=== PATIENT | female | born 1960 | race Caucasian/White ===

== ENCOUNTER → 2019-10-27 14:51 | Outpatient (CLI) | payer BC, SELFPAY ==
--- NOTE | 2019-10-27 14:58 | XR_ITS ---
PROCEDURE: XR FOOT WT BEARING LT 3V CLINICAL INDICATION: pain COMPARISON: FTR3 FOOT-RT-3 VIEWS from 03/04/2014 XR ANKLE WT BEARING LT MIN 3V from 10/27/2019 XR FOOT WT BEARING RT 3V from 10/27/2019 FINDINGS: No fracture or dislocation. No lytic or blastic change. There is normal mineralization. The joint spaces are well-preserved. No significant degenerative/arthritic changes. No erosive changes evident. No acute finding of the ankle Other findings:There is some mild nonspecific cortical thickening of the shaft of the 3rd metatarsal. This is nonspecific but could be seen with stress fracture. IMPRESSION: Nonspecific cortical thickening 3rd metatarsal shaft which could be seen with stress fracture. Dictated by: Gordon Howard MD 10/27/2019 15:35 Electronically signed by Gordon Howard MD in [place] 10/27/2019 15:35
--- NOTE | 2019-10-27 14:58 | XR_ITS ---
PROCEDURE: XR ANKLE WT BEARING RT MIN 3V CLINICAL INDICATION: pain COMPARISON: XR FOOT WT BEARING RT 3V from 10/27/2019 FINDINGS: No fracture or dislocation. No lytic or blastic change. There is normal mineralization. The joint spaces are well-preserved. No significant degenerative/arthritic changes. No erosive changes evident. Other findings:None. IMPRESSION: Negative right foot and ankle Dictated by: Gordon Howard MD 10/27/2019 15:37 Electronically signed by Gordon Howard MD in [place] 10/27/2019 15:37
== END ==
PROVIDERS: PCP Nurse Practitioner Family; Visit Provider Podiatrist
DX: M79.672 Pain in left foot (principal); M79.671 Pain in right foot
CPT/HCPCS: 73610; 73630

== ENCOUNTER 2020-06-27 14:01 | Emergency (ER) | payer BC, SELFPAY ==
[2020-06-27 14:02] VITALS: BP 165/61; PULSE 99; RESP 17; TEMP 37.9; O2SAT 95; BMI 34.0
--- NOTE | 2020-06-27 14:16 | ECG_ITS ---
APPROVED REPORT Exam: Resting ECG HR:101 bpm ECG Measurements Heart Rate 101 AXES RI 112 P 49 QRSd 86 QRS -4 QT 350 T 83 QTc 453 Conclusion Sinus tachycardia Isolated Q in III Abnormal ECG Electronically signed by : Erickson Patrick, 06/28/2020 17:20:26
--- NOTE | 2020-06-27 14:20 | XR_ITS ---
PROCEDURE: XR CHEST PORTABLE CLINICAL HISTORY: chest pain COMPARISON: No exams were available for comparison FINDINGS: The cardiomediastinal silhouette and pulmonary vascularity are within normal limits. The lungs are clear without infiltrates, suspicious nodules, or pleural effusions. No acute bony abnormalities. IMPRESSION: No acute findings. Dictated by: Gordon Howard MD 06/27/2020 15:23 Gordon Howard MD in [place] 06/27/2020 15:23
[2020-06-27 14:43] LABS: Basophils % 0.6 % (0.1-2.0); Eosinophils % 0.7 % (0.1-12.0); Hematocrit 42.9 % (37.0-47.0); Hemoglobin 14.2 g/dL (12.2-16.2); Lymphocytes # 1.9 K/mm3 (0.7-4.5); Lymphocytes % 36.4 % (10-50); Mean Corpuscular HGB Conc 33.1 g/dL (31.8-35.4); Mean Corpuscular Hemoglobin 28.9 pg (27.0-31.2); Mean Corpuscular Volume 87.4 fl (81-99); Monocytes # 0.3 K/mm3 (0.1-1.0); Monocytes % 4.9 % (1.7-9.3); Neutrophils % 57.4 % (37.0-80.0); Platelet Count 286 K/mm3 (142-424); Red Blood Count 4.91 M/mm3 (4.20-5.40); Red Cell Distribution Width 13.3 % (11.5-17.5); White Blood Count 5.2 K/mm3 (4.8-10.8)
[2020-06-27 14:46] LABS: Chloride 105 mmol/L (98-107); Potassium 4.2 mmoL/L (3.5-5.1); Sodium 138 mmol/L (136-145)
[2020-06-27 14:49] LABS: Alanine Aminotransferase 26 U/L (12-78); Albumin Level 4.3 g/dl (3.5-5.0); Albumin/Globulin Ratio 1.4 (1.1-1.8); Alkaline Phosphatase 95 U/L (38-126); Anion Gap 12.2 mEq/L (5-15); Aspartate Amino Transferase 34 U/L (14-36); Bilirubin,Total 0.4 mg/dl (0.2-1.3); Blood Urea Nitrogen 19 mg/dl (7-17); Calcium 9.4 mg/dl (8.4-10.2); Carbon Dioxide 25 mmol/L (22.0-30.0); Creatinine Clearance Estimated 87 mL/min (50-200); Estimated Glomerular Filt Rate 64 ml/min (>60); GFR (African American) 78 ML/MIN (>60); Globulin 3.1 g/dL (1.3-3.2); Glucose 106 mg/dl (74-100); Total Protein,Serum 7.4 g/dl (6.3-8.2)
[2020-06-27 15:08] VITALS: BP 141/88; PULSE 87; RESP 18; TEMP 36.6; O2SAT 99
[2020-06-27 15:25] LABS: Troponin I < 0.01 ng/ml (0.00-0.034)
[2020-06-27 15:30] VITALS: BP 144/79; PULSE 81; RESP 18; O2SAT 99
[2020-06-27 16:00] VITALS: PULSE 75; RESP 17; O2SAT 98
[2020-06-27 16:30] VITALS: PULSE 78; RESP 17; O2SAT 98
--- NOTE | 2020-06-27 16:31 | HMH.EDGENADL ---
ED Disposition Clinical Impression: Viral syndrome Disposition: Home, Self-Care Condition on Discharge: Good Instructions: DI for Neck Pain Referrals: Shelly Payne APRN [Primary Care Provider] - 3 days Time of Disposition: 16:35 - Critical Care Critical Care Time: No Attestation: On 06/27/20, the high probability of a clinically significant, sudden or life threatening deterioration of the following system(s) required my full and direct attention, intervention and personal management. The time I documented below is in addition to time spent performing reported procedures but includes the following listed in this critical care notation. Medical Decision Making - Medical Records Medical records reviewed: Yes: I reviewed the patient's medical records. - Wale Inquiry Pt receiving controlled substance: No Vital Signs: 06/27/20 14:02 06/27/20 15:08 06/27/20 15:30 Temperature 100.3 F H 97.9 F Temperature Source Oral Oral Pulse Rate [Left Radial] 99 H 87 81 Respiratory Rate 17 18 18 Blood Pressure [Left Arm] 165/61 H 141/88 H 144/79 H Blood Pressure Mean [Left Arm] 95 105 100 Blood Pressure Source [Left Arm] Manual Cuff/ Doppler Automatic Cuff Blood Pressure Position [Left Arm] Sitting Sitting 02 Sat by Pulse Oximetry 95 99 99 Oxygen Delivery Method Room Air Room Air 06/27/20 16:00 06/27/20 16:30 Temperature Temperature Source Pulse Rate [Left Radial] 75 78 Respiratory Rate 17 17 Blood Pressure [Left Arm] Blood Pressure Mean [Left Arm] Blood Pressure Source [Left Arm] Blood Pressure Position [Left Arm] 02 Sat by Pulse Oximetry 98 98 Oxygen Delivery Method Room Air Room Air - Lab Data Lab results reviewed: Yes: I reviewed the patient's lab results. Lab Results 06/27/20 14:27: WBC 5.2, RBC 4.91, Hgb 14.2, Hct 42.9, MCV 87.4, MCH 28.9, MCHC 33.1, RDW 13.3, Plt Count 286, MPV 7.0 L, Neut % (Auto) 57.4, Lymph % (Auto) 36.4, Pratt % (Auto) 4.9, Eos % (Auto) 0.7, Baso % (Auto) 0.6, Neut # (Auto) 3.0, Lymph # (Auto) 1.9, Pratt # (Auto) 0.3, Eos # (Auto) 0.0, Baso # (Auto) 0.0 06/27/20 14:27: Sodium 138, Potassium 4.2, Chloride 105, Carbon Dioxide 25, Anion Gap 12.2, BUN 19 H, Creatinine 0.90, Estimated Creat Clear 87, Estimated GFR 64, Est GFR ( Amer) 78, Glucose 106 H, Calcium 9.4, Total Bilirubin 0.4, AST 34, ALT 26, Alkaline Phosphatase 95, Troponin I < 0.01, Total Protein 7.4, Albumin 4.3, Globulin 3.1, Albumin/Globulin Ratio 1.4 Result diagrams: 06/27/20 14:27 06/27/20 14:27 Orders (Tests/Meds): ORDERS Category Date Time Status Covid-19 Nasal PCR ([facility]) Routine Lab 06/27/20 15:10 Received Troponin I Q3H Lab 06/27/20 17:30 Ordered Troponin I Q3H Lab 06/27/20 20:30 Ordered - Radiology Data #1 Image(s): Chest Image Reviewed: Yes I reviewed the patient's radiology results, Yes I have reviewed radiologist's interpretation Preliminary Findings: Normal/NAD - ECG Data Tracing #1 Sinus tachycardia, 101 bpm, no ST elevation or depression appreciated, no ectopy. ECG initial impression date: 06/27/20 ECG initial impression time: 14:17 Medical Decision Narrative: 59yo F initially presenting with concern for cardiac pathology but has since learned a close family were test positive for coronavirus and she developed fever and chills. Symptoms appear more consistent with coronavirus. Patient is already been swabbed for coronavirus. Her cardiac work-up is unremarkable. Already discussed monoclonal antibody treatment with the patient. Her swab is not returned at this time but the patient states if positive, she would be interested in completing the treatment. She will be called further once results are available. General Adult HPI - General Chief complaint: Neck Pain/Injury Stated complaint: nausea, neck hurts bad taste Time Seen by Provider: 06/27/20 16:31 Mode of Arrival: Family Vehicle Limitations: No Limitations Description of Symptoms (Recalled fro
[2020-06-27 16:39] VITALS: BP 137/79; PULSE 76; RESP 18; TEMP 36.6; O2SAT 98
--- NOTE | 2020-06-27 22:46 | PC.NURSE ---
called and left voicemail
== END 2020-06-27 16:41 | disposition home or self-care (01) ==
PROVIDERS: Emergency Provider Family Medicine; PCP Nurse Practitioner Family
DX: U07.1 COVID-19 (principal); B34.9 Viral infection, unspecified; I10 Essential (primary) hypertension; E78.5 Hyperlipidemia, unspecified
CPT/HCPCS: 71045; 80053; 84484; 85025; 93005; 99283; U0003

== ENCOUNTER 2020-06-28 08:59 | Outpatient (CLI) | payer BC, SELFPAY ==
[2020-06-28] VITALS (7 sets, daily range): BP systolic 103–123; BP diastolic 65–82; PULSE 81–89; RESP 18–20; TEMP 36.7–37.2; O2SAT 93–96
== END 2020-06-28 11:55 | disposition home or self-care (01) ==
PROVIDERS: PCP Nurse Practitioner Family; Visit Provider Family Medicine
DX: U07.1 COVID-19 (principal)
CPT/HCPCS: 96365

== ENCOUNTER → 2021-06-12 08:18 | Outpatient (CLI) | payer OTHER, SELFPAY ==
[2021-06-12 10:43] LABS: Alanine Aminotransferase 37 U/L (12-78); Albumin Level 4.5 g/dl (3.5-5.0); Albumin/Globulin Ratio 1.9 (1.1-1.8); Alkaline Phosphatase 116 U/L (38-126); Anion Gap 13.9 mEq/L (5-15); Aspartate Amino Transferase 32 U/L (14-36); Bilirubin,Total 0.5 mg/dl (0.2-1.3); Blood Urea Nitrogen 15 mg/dl (7-17); Calcium 9.4 mg/dl (8.4-10.2); Carbon Dioxide 26 mmol/L (22.0-30.0); Chloride 106 mmol/L (98-107); Chol/HDL Ratio 3.5 (1-3.5); Cholesterol 176 mg/dl (140-200); Estimated Glomerular Filt Rate 73 ml/min (>60); GFR (African American) 89 ML/MIN (>60); Globulin 2.4 g/dL (1.3-3.2); Glucose 104 mg/dl (74-100); HDL Cholesterol 50 mg/dl (40-60); Potassium 4.9 mmoL/L (3.5-5.1); Sodium 141 mmol/L (136-145); Total Protein,Serum 6.9 g/dl (6.3-8.2); Triglycerides 170 mg/dl (30-150); VLDL Cholesterol 34 mg/dL (0-40)
[2021-06-12 10:54] LABS: Direct LDL Cholesterol 93.16 mg/dL (100-129)
[2021-06-12 11:00] LABS: 25-OH Vitamin D, Total 19.7 ng/mL (30-100)
== END ==
PROVIDERS: PCP Nurse Practitioner Family; Visit Provider Nurse Practitioner Family
DX: Z00.00 Encounter for general adult medical examination without abnormal findings (principal); I10 Essential (primary) hypertension; E78.5 Hyperlipidemia, unspecified; E55.9 Vitamin D deficiency, unspecified; Z11.1 Encounter for screening for respiratory tuberculosis
CPT/HCPCS: 36415; 80053; 80061; 82306

== ENCOUNTER 2022-03-24 12:38 | Emergency (ER) | payer OTHER, SELFPAY ==
[2022-03-24] VITALS (9 sets, daily range): BP systolic 111–167; BP diastolic 62–91; PULSE 73–90; RESP 18–20; TEMP 36.7; O2SAT 95–98; BMI 34.3
--- NOTE | 2022-03-24 12:48 | ECG_ITS ---
APPROVED REPORT Exam: Resting ECG HR:83 bpm ECG Measurements Heart Rate 83 AXES OK 131 P 59 QRSd 100 QRS 24 QT 385 T 78 QTc 425 Conclusion SINUS RHYTHM Late R wave progression Q waves in Inferior leads are of questionable significance ABNORMAL ECG UNCONFIRMED REPORT Electronically signed by : Erickson Patrick MD 03/25/2022 14:58:21
--- NOTE | 2022-03-24 12:56 | HMH.EDGENADL ---
Discharge Plan Disposition Patient Disposition: Home, Self-Care Condition: Good Prescriptions Prescriptions: No Action diclofenac sodium 75 mg tablet,delayed release (DR/EC) 75 mg PO BID Qty: 60 3RF bisoprolol-hydrochlorothiazide 5-6.25 mg tablet 5 tab PO DAILY atorvastatin 40 mg tablet 40 mg PO DAILY Label Comments: TAKE ONE TABLET BY MOUTH EVERY DAY Referrals Follow up/Referrals: Shelly Payne APRN [Primary Care Provider] - See instructions Boy Mota MD [Staff Physician] - See instructions Activity Restrictions/Add. Instructions Additional Instructions/Restrictions: Follow-up with primary care provider or cardiology, Dr. Mota. Call Saturday to make appointment. Return to the emergency department if worsening episodes of jaw pain or if chest pain or shortness of breath or other symptoms of concern. Clinical Impressions Clinical Impression: Jaw pain Discharge ED Provider: Raffy Orozco General Adult HPI General Chief complaint: PAIN Stated complaint: left side jaw pain Time Seen by Provider: 03/24/22 15:12 History of Present Illness HPI narrative: Patient states that she awakened last night at 2 AM with pain in her left jaw, she indicates the TMJ area. She did not notice that the pain increased at all with movement of the jaw or clenching of the jaw or with touch. She says it was able to settle down and she was able to get back to sleep at 3 AM. Today her jaw just feels a little bit sore. Chest felt a little heavy earlier today, but not now. States she was hot when she woke up at 2 AM, but not sweaty. No shortness of breath. No problems with her ears for her teeth. She says that her family members wanted her to come in and be checked. She does not have any known heart problems. She does have hypertension and hyperlipidemia. She has a family history of heart disease in her father. She says he started having heart problems at about the age of 62 or 63. She has never had a stress test or heart cath. Related Data Home Medications Medication Instructions Recorded Confirmed atorvastatin 40 mg tablet 40 mg PO DAILY Cholesterol 10/29/19 06/27/20 bisoprolol 5 5 tab PO DAILY blood pressure 10/29/19 06/27/20 mg-hydrochlorothiazide 6.25 mg tablet Previous Rx's Medication Instructions Recorded diclofenac sodium 75 mg 75 mg PO BID pain #60 tabs 01/28/20 tablet,delayed release Allergies Allergy/AdvReac Type Severity Reaction Status Date / Time nickel [NICKEL] Allergy Unknown I-RASH Verified 03/29/20 15:25 PFSH [facility] Social History Smoking Status: Never smoker alcohol intake: never current occupational status: employed Travel in the last 8 weeks: None ROS Obtained: Yes Systems reviewed as appropriate & no additional complaints except as documented Constitutional Constitutional: Denies fever(s), Denies headache(s) and Denies weakness ENT Ears, Nose, Mouth, and Throat: Denies headache(s), Denies nasal discharge, Denies sore throat and Reports other (Left jaw pain and TMJ area) Cardiovascular Cardiovascular: Reports as per HPI, Denies diaphoresis and Denies palpitations Respiratory Respiratory: Denies shortness of breath and Denies cough Gastrointestinal Gastrointestingal: Denies abdominal pain, constipation, diarrhea or vomiting Genitourinary Female Genitourinary: Denies difficulty voiding, Denies dysuria and Denies flank pain Musculoskeletal Musculoskeletal: Denies numbness Neurologic Neurologic: Denies headache(s), Denies numbness and Denies weakness Endocrine Endocrine: Denies palpitations Physical Exam General General appearance: alert and in no apparent distress Head Head exam: atraumatic and normocephalic Eye Eye exam: Present normal appearance and EOMI ENT ENT exam: Present mucous membranes moist, TM's normal bilaterally and other (Dentition unremarkable. TMJs nontender. Full range of motion of mandible without pain.)
--- NOTE | 2022-03-24 12:57 | XR_ITS ---
PROCEDURE INFORMATION: Exam: XR Chest Exam date and time: 03/24/2022 1:22 PM Age: 61 years old Clinical indication: Pain; Chest pressure; Additional info: Chest heaviness TECHNIQUE: Imaging protocol: Radiologic exam of the chest. Views: 1 view. COMPARISON: CR XR CHEST PORTABLE 06/27/2020 3:05 PM FINDINGS: Lungs: Unremarkable. No consolidation. Pleural spaces: Unremarkable. No pleural effusion. No pneumothorax. Heart/Mediastinum: Unremarkable. No cardiomegaly. Bones/joints: Unremarkable. IMPRESSION: No acute findings.
[2022-03-24 13:21] LABS: Basophils # 0.1 K/mm3 (0-0.2); Basophils % 0.7 % (0.1-2.0); Eosinophils # 0.4 K/mm3 (0.0-0.4); Hematocrit 42.9 % (37.0-47.0); Hemoglobin 13.6 g/dL (12.2-16.2); Lymphocytes # 2.4 K/mm3 (0.7-4.5); Lymphocytes % 26.1 % (10-50); Mean Corpuscular HGB Conc 31.6 g/dL (31.8-35.4); Mean Corpuscular Hemoglobin 28.7 pg (27.0-31.2); Mean Corpuscular Volume 90.7 fl (81-99); Mean Platelet Volume 6.7 fl (7.4-10.4); Monocytes # 0.3 K/mm3 (0.1-1.0); Monocytes % 3.1 % (1.7-9.3); Neutrophils # 6.1 K/mm3 (1.8-7.8); Platelet Count 394 K/mm3 (142-424); Red Blood Count 4.73 M/mm3 (4.20-5.40); White Blood Count 9.2 K/mm3 (4.8-10.8)
[2022-03-24 13:31] LABS: Chloride 106 mmol/L (98-107); Potassium 4.1 mmoL/L (3.5-5.1); Sodium 140 mmol/L (136-145)
[2022-03-24 13:34] LABS: Anion Gap 12.1 mEq/L (5-15); Blood Urea Nitrogen 22 mg/dl (7-17); Calcium 9.2 mg/dl (8.4-10.2); Carbon Dioxide 26 mmol/L (22.0-30.0); Creatinine Clearance Estimated 77 mL/min (50-200); Estimated Glomerular Filt Rate 50 ml/min (>60); GFR (African American) 61 ML/MIN (>60); Glucose 97 mg/dl (74-100)
[2022-03-24 14:00] LABS: Troponin I < 0.01 ng/ml (0.00-0.034)
--- NOTE | 2022-03-24 15:31 | PC.NURSE ---
second troponin sent to lab
[2022-03-24 16:19] LABS: Troponin I < 0.01 ng/ml (0.00-0.034)
== END 2022-03-24 16:50 | disposition home or self-care (01) ==
PROVIDERS: Emergency Provider Emergency Medicine; PCP Nurse Practitioner Family
DX: R68.84 Jaw pain (principal)
CPT/HCPCS: 71045; 80048; 84484; 85025; 93005; 99283

== ENCOUNTER 2023-08-21 09:45 | Day surgery (SDC) | payer OTHER, SELFPAY ==
[2023-08-19 13:26] VITALS: BMI 35.1
[2023-08-21 10:26] VITALS: BP 168/69; PULSE 71; RESP 18; TEMP 36.1; O2SAT 97
[2023-08-21] MEDS: LACTATED RINGERS 1000ML 1,000 ML 100 ML IV ×2 (10:41→10:42)
[2023-08-21 10:47] VITALS: O2SAT 97
--- NOTE | 2023-08-21 11:11 | HMH.SCOPE ---
Procedure: Date: 08/21/23 Patient Date of :: 1960 Procedure Performed:: Colonoscopy Indications:: The patient is a 63-year-old who presents for screening colonoscopy. Performing Provider:: Ren Boykin MD Referring Provider:: Shelly Hernandez APRN Sedation:: See RN records Procedure:: After placing the patient in the left lateral decubitus position, the colonoscopy was gently inserted into the rectum and under direct visualization advanced to the cecum which was identified by transillumination in the right lower quadrant, identification of the ileocecal valve, appendiceal orifice, and cecal strap. Color, texture, mucosa, and anatomy of the colon were carefully examined with the scope. Findings:: The quality of the bowel preparation was excellent. The sigmoid colon was somewhat tortuous. There was a small sessile 4 mm polyp in the sigmoid colon. Polyp was removed by cold snare polypectomy. Polyp was retrieved. Scattered diverticulosis in the sigmoid colon. The remaining colon appeared normal. Small internal hemorrhoids were seen on retroflexion view of the rectum Impression: Polyp of the sigmoid colon Diverticulosis Recommendations:: Await pathology results Repeat colonoscopy in 5 years Complications:: None Estimated blood obtained (mL): 0 Colonoscopy Component Colonoscopy Component Was a colonoscopy performed during today's procedure?: Yes Recommended follow up colonoscopy of at least 10 years?: Yes
[2023-08-21 11:12] VITALS: BP 105/41; PULSE 92; RESP 14; TEMP 36.2; O2SAT 92
[2023-08-21 11:22] VITALS: BP 93/41; PULSE 80; RESP 16; O2SAT 97
[2023-08-21 11:32] VITALS: BP 100/53; PULSE 79; RESP 16; O2SAT 96
[2023-08-21 11:42] VITALS: BP 104/56; PULSE 82; RESP 18; O2SAT 96
--- NOTE | 2023-08-21 12:14 | EXP.ANES.CKL ---
[facility] Disclaimer: The information contained in this section may have been updated after the patient was seen, as this information can be updated by other users. Medical History Urinary tract infection History of COVID-19 Irritable bowel syndrome (IBS) Hyperlipidemia Hypertension Surgical History H/O repair of rotator cuff H/O tubal ligation Family History Other History of open heart surgery Hypertension Social History Smoking Status: Never smoker alcohol intake: never substance use type: denies use current occupational status: retired Travel in the last 8 weeks: None caffeine: Yes [facility] Anesthesia Checklist Patient Identification Patient Identification: Verbal (Name & ) Structural Data Admitted From: Home Planned Operative Procedure/s: colonoscopy Consent for Planned Operative Procedure(s) Verified: Yes Airway Assessment Mallampati Score:: Class II C-Spine Mobility Assessed: Yes TMJ Mobility Assessed: Yes Dentition: Good Dentition Neurological Assessment Level of Consciousness: Awake, Alert and Appropriate Anesthesia Plan Anesthesia Risk discussed: Yes Anesthesia Plan: Verified ASA Class: II Anesthesia Type: MAC
== END 2023-08-21 11:47 | disposition home or self-care (01) ==
PROVIDERS: PCP Nurse Practitioner Family; Visit Provider Internal Medicine
PROC: (CPT 45385; principal; 2023-08-21 11:00)
DX: Z12.11 Encounter for screening for malignant neoplasm of colon (principal); K57.30 Diverticulosis of large intestine without perforation or abscess without bleeding; K64.8 Other hemorrhoids; D12.5 Benign neoplasm of sigmoid colon
CPT/HCPCS: 45385; 96372; J2704

== ENCOUNTER 2023-12-07 10:09 | Outpatient (CLI) | payer OTHER, SELFPAY ==
[2023-12-07 10:33] LABS: Albumin Level 4.1 g/dl (3.5-5.0); Chloride 111 mmol/L (98-107); Potassium 5.1 mmoL/L (3.5-5.1); Sodium 142 mmol/L (136-145)
[2023-12-07 10:36] LABS: Alanine Aminotransferase 27 U/L (12-78); Albumin/Globulin Ratio 1.5 (1.1-1.8); Alkaline Phosphatase 106 U/L (38-126); Anion Gap 8.1 mEq/L (5-15); Aspartate Amino Transferase 27 U/L (14-36); Bilirubin,Total 0.5 mg/dl (0.2-1.3); Blood Urea Nitrogen 17 mg/dl (7-17); Carbon Dioxide 28 mmol/L (22.0-30.0); Estimated Glomerular Filt Rate 45 ml/min (>60); GFR (African American) 55 ML/MIN (>60); Globulin 2.7 g/dL (1.3-3.2); Total Protein,Serum 6.8 g/dl (6.3-8.2)
[2023-12-07 10:37] LABS: Calcium 8.9 mg/dl (8.4-10.2); Glucose 88 mg/dl (74-100)
[2023-12-07 10:56] LABS: Troponin I < 0.01 ng/ml (0.00-0.034)
[2023-12-07 11:07] LABS: Thyroid Stimulating Hormone 3.14 uIU/mL (0.465-4.68)
== END 2023-12-07 23:59 | disposition home or self-care (01) ==
LOC: LAB 10:10
PROVIDERS: PCP Nurse Practitioner Family; Visit Provider Nurse Practitioner Family
DX: M79.602 Pain in left arm (principal); R07.89 Other chest pain; R06.02 Shortness of breath
CPT/HCPCS: 36415; 80053; 84443; 84484

== ENCOUNTER 2024-01-14 11:53 | Outpatient (CLI) | payer OTHER, SELFPAY ==
--- NOTE | 2024-01-14 11:58 | CT_ITS ---
APPROVED REPORT Can Striper: CLINICAL INDICATION Chest Pain TECHNIQUE Image Acquisition: A 128 slice MDCT scanner ([employer] View) was used for data acquisition. A noncontrast coronary calcium scan was performed. A CT attenuation threshold of 130 Hounsfield units (HU) was used for the detection of calcium in contiguous voxels of 1 sq mm in area to be counted as individual lesions. Bolus tracking in the ascending aorta with a threshold of 180 HU was performed. Immediately afterwards, ECG synchronized cardiac CT was then performed from the cardiac base to apex using retrospective gating with ECG tube current modulation. A total of 85 mL of Isovue 370 mg/mL contrast medium was administered at 5 mL/sec followed by a saline flush using a biphasic injection protocol. A tube voltage of 120 KVp was used. The patient received the following medications prior to the cardiac CT. 25 mg of oral metoprolol 15 mg of oral ivabradine 0.8 mg of sublingual nitroglycerin The average heart rate at the time of acquisition was 54 bpm and regular. Image Reconstruction Transaxial images were reconstructed at 0.67 mm slide thickness. Data was reviewed interactively on an advanced workstation capable of 2 and 3-dimensional displays in all conventional reconstruction formats, including multiplanar reformations, maximum intensity projections, curved multiplanar reformations, and volume rendered reconstructions. When applicable, selected routine images describing the relevant coronary anatomy and pathology were saved and sent to PACS. Complications None Technical Quality Overall image quality was fair. Coronary artery opacification was adequate. Total DLP (Dose-Length Product) is 1248.8 mGy-cm. The reported value represents the total of one or more individual components during the CT acquisition of this date and at this time, and as such, the same value may appear in more than one CT report depending on the interpreting/reporting physicians. COMPARISON None FINDINGS CT Coronary Calcium Scoring LMA (Left Main Artery) = 0 LAD (Left Anterior Descending) = 65 LCX (Left Coronary Circumflex) = 12 RCA (Right Coronary Artery) = 22 Total Calcium Score = 109 using the AJ-130 method. The observed calcium score of 109 is at 85th percentile for subjects of the same age, sex, and race/ethnicity. The interpretation of the calcium heart score is based on the following continuum*: 0 = no calcified plaque detected (risk of coronary artery disease is very low ??? less than 5%) 1-10 = calcium detected in extremely minimal levels (risk of coronary diseases is still low ??? less than 10%) 11-100 = mild levels of plaque detected with certainty (mild or minimal narrowing of heart arteries is likely) 101-400 = definite,at least moderate levels of plaque detected (relatively high risk of a heart attack within 3-5 years) >401-999 = extensive levels of plaque detected (high risk of heart attack, high levels of vascular disease are present, high likelihood of at least one significant coronary narrowing) *The calcium heart score quantifies the burden of coronary calcification/plaque in the coronary arteries. The calcium heart score is not able to evaluate the presence or burden of non-calcified (i.e. soft) plaque. There is also identifiable mild calcification in the aortic valve. Coronary CT Angiography The coronary arterial system is right dominant. Quantitative Stenosis Grading: Left Main (LM): The left main originates normally from the left sinus of Valsalva. The LM bifurcates into the left anterior descending artery and left circumflex artery. There is calcified plaque noted in the distal LM segment, with < 25% luminal stenosis. Left Anterior Descending (LAD) and Diagonal Branches: The LAD gives off 3 diagonal branch(es). There is mixed calcified/noncalcified plaque in the proximal LAD segment, involving the first diagonal branch, with up to 50-75% luminal stenosis. There is no evidence of LAD-myocardial bridge. Left Circumflex (LCX) and Obtuse Marginals (OM): The LCX gives off 1 Obtuse Marginal (OM) branch(es). There is mixed calcified/noncalcified plaque in the proximal LCx, with up to 25-49% luminal stenosis. Right Coronary Artery (RCA): The RCA originates normally from the right sinus of Valsalva. The RCA gives off a posterior descending artery (PDA) and posterolateral (PL) branches. There is mixed calcified/noncalcified plaque in the proximal RCA segment, with up to 25-49% luminal stenosis. Non-Coronary Cardiac Findings: Analysis of the left ventricular (LV) structure and function was performed after 3-D reconstruction of the LV from axial images, with user-corrected automatic contouring for assessment of LV volumes and user-defined reconstruction from oblique planes for measurement of 3-D cardiac structure and function. -The left ventricle systolic function is normal -There is no left atrial appendage filling defect. Two right pulmonary veins and two left pulmonary veins drain normally into the left atrium. -No pericardial thickening or calcification. -Central and branch pulmonary arteries in the [id number] are unremarkable. -Thoracic aorta within the visualized thoracic aortic-branches in the [id number] is unremarkable. Extracardiac Structures No significant extra-cardiac findings. Note, however, that this study is focused on the cardiac findings. IMPRESSION -Technically difficult study due to suboptimal spatial resolution and blurring artifact. -Presence of coronary calcification with an Agatston score = 109 using the AJ-130 method. -The observed calcium score of 109 is at 85th percentile for subjects of the same age, sex, and race/ethnicity. -Moderate atheroslerosis in the proximal LAD segment and involving the first diagonal branch, with possible evidence of significant flow-limiting atherosclerosis in the corresponding segment. -Mild, nonobstructive atherosclerosis in the proximal LCx and RCA segments. -CAD-RADS 3. Management recommendations per ACC/AHA guidelines*, as clinically appropriate. -Mild calcification in the aortic valve. *Recommendations: CAD RADS 0: Reassurance. Consider non-atherosclerotic causes of chest pain. CAD RADS 1: Consider non-atherosclerotic causes of chest pain. Consider preventive therapy and risk factor modification. CAD RADS 2: Consider non-atherosclerotic causes of chest pain. Consider preventive therapy and risk factor modification, particularly for patients with nonobstructive plaque in multiple segments. CAD RADS 3: Consider further functional testing. Consider symptom-guided anti-ischemic and preventive pharmacotherapy as well as risk factor modification per published guideline statements. CAD RADS 4A: Consider further functional testing or invasive coronary angiography with revascularization per published guideline statements. Consider symptom-guided anti-ischemic and preventive pharmacotherapy as well as risk factor modification per published guideline statements. CAD RADS 4B: Invasive coronary angiography recommended with revascularization per published guideline statements. Consider symptom-guided anti-ischemic and preventive pharmacotherapy as well as risk factor modification per published guideline statements. CAD RADS 5: Consider invasive angiography and/or viability assessment with revascularization per published guideline statements. Consider symptom-guided anti-ischemic and preventive pharmacotherapy as well as risk factor modification per published guideline statements. CRITICAL RESULT None COMMUNICATION Per this written report The coronary and cardiac findings of this CCTA were reviewed, reported, and signed by Madan Navarro MD (Qa Test Lead) Conclusion Electronically signed by : Sruthi Navarro MD 01/15/2024 14:39:20
[2024-01-14 12:01] VITALS: BMI 34.0
[2024-01-14 12:10] VITALS: BP 153/81; PULSE 67; RESP 16; TEMP 36.1; O2SAT 97
[2024-01-14] MEDS: IVABRADINE HCL 7.5MG TABLET *IVABRADINE+METOPROLOL REGIMINE 15 MG PO (12:20)
[2024-01-14] MEDS: METOPROLOL TARTRATE 25MG TABLET 25 MG (12:20)
[2024-01-14 12:40] VITALS: BP 123/69; PULSE 64; RESP 16; O2SAT 99
[2024-01-14 12:43] LABS: Chloride 104 mmol/L (98-107); Sodium 137 mmol/L (136-145)
[2024-01-14 12:44] LABS: Potassium 5.1 mmoL/L (3.5-5.1)
[2024-01-14 12:46] LABS: Blood Urea Nitrogen 16 mg/dl (7-17); Creatinine Clearance Estimated 74 mL/min (50-200); Estimated Glomerular Filt Rate 72 ml/min (>60); GFR (African American) 88 ML/MIN (>60)
[2024-01-14 12:47] LABS: Anion Gap 10.1 mEq/L (5-15); Carbon Dioxide 28 mmol/L (22.0-30.0); Glucose 87 mg/dl (74-100)
[2024-01-14 13:22] VITALS: BP 146/76; PULSE 61; RESP 16; O2SAT 98
[2024-01-14 13:26] VITALS: BP 126/72; PULSE 59; RESP 16; O2SAT 93
[2024-01-14 13:30] VITALS: BP 123/64; PULSE 55; RESP 17; O2SAT 97
[2024-01-14] MEDS: IOPAMIDOL-370 (76%);100ML BOTTLE 85 ML IV (13:33)
[2024-01-14] MEDS: 0.9 % SODIUM CHLORIDE 50 ML VIAL IV (13:33)
[2024-01-14] MEDS: SODIUM CHLORIDE 0.9% 10ML SYR (RAD ONLY) 10 ML IV (13:33)
== END 2024-01-14 13:40 | disposition home or self-care (01) ==
PROVIDERS: PCP Nurse Practitioner Family; Visit Provider Nurse Practitioner Family
DX: R06.02 Shortness of breath (principal); M79.602 Pain in left arm
CPT/HCPCS: 75574; 80048; Q9967

== ENCOUNTER 2024-02-11 08:27 | Day surgery (SDC) | payer OTHER, SELFPAY ==
[2024-02-11] VITALS (11 sets, daily range): BP systolic 110–171; BP diastolic 55–91; PULSE 62–74; RESP 18–19; TEMP 36.6; O2SAT 93–96; BMI 34.9
--- NOTE | 2024-02-11 07:05 | IR_ITS ---
APPROVED REPORT Patient Location: Outpatient PROCEDURES Left heart catheterization Left ventriculogram Selective coronary angiogram Drug-eluting stent deployment to the proximal LAD INDICATION Coronary artery disease, Abnormal CCTA, Progressive angina pectoris, Informed consent was obtained prior to the procedure. COMPLICATIONS None Estimated Blood Loss: Less than 10 mls TECHNIQUE One percent lidocaine used to anesthetize the right anterior aspect of the wrist. The right radial artery was accessed via the Seldinger technique. A 6 Maltese sheath was placed in the right radial artery. 2.5 mg of Verapamil, 800 mcg of nitroglycerin, 1mg Lidocaine and 5000 U Heparin were given through the arterial sheath. The JL 3 catheter was also used to perform left heart catheterization, left ventriculogram and selective coronary angiogram. At the end of the diagnostic angiogram therapeutic heparin was administered giving a therapeutic ACT and the guide catheters placed in left main artery followed by a Choice PT floppy wire placed into the mid LAD. Predilatation was made with a 2 mm x 12 mm compliant balloon. Following this a 3 mm x 26 mm Andriy frontier stent was deployed at 20 yeyo reducing the severe stenosis to 0%. RJ-3 flow was present before and after the procedure. At the end the procedure the apparatus was removed the sheath was removed and hemostasis was achieved using TR banding patient was transferred to the postop putting in stable condition ANGIOGRAPHIC RESULTS The left main artery Normal The left anterior descending artery Has proximal concentric calcified 80% stenosis with mid vessel 20% stenoses The circumflex artery Nondominant with proximal 20% concentric stenoses The right coronary artery Dominant with proximal 20 to 30% stenosis The FALCON ventriculogram reveals Normal 65% The left ventricular end-diastolic pressure 10 to 15 mmHg IMPRESSION Severe proximal LAD disease as described above Successful stenting of the proximal LAD severe disease reduced to 0% with 1 drug-eluting stent Normal ejection fraction Normal LVEDP PLAN 1. Effient and aspirin 2. LDL less than 55 to be achieved with high intensity statin 3. Avoidance of tobacco products 4. Risk factor modification 5. Cardiac rehabilitation Electronically signed by : Boy Mota MD 02/11/2024 11:44:42
[2024-02-11 09:35] LABS: Chloride 108 mmol/L (98-107)
[2024-02-11 09:36] LABS: Potassium 4.4 mmoL/L (3.5-5.1); Sodium 139 mmol/L (136-145)
[2024-02-11 09:37] LABS: Basophils # 0.1 K/mm3 (0-0.2); Eosinophils # 0.2 K/mm3 (0.0-0.4); Hematocrit 43.9 % (37.0-47.0); Hemoglobin 14.8 g/dL (12.2-16.2); Lymphocytes # 2.5 K/mm3 (0.7-4.5); Lymphocytes % 37.7 % (10-50); Mean Corpuscular HGB Conc 33.6 g/dL (31.8-35.4); Mean Corpuscular Hemoglobin 29.6 pg (27.0-31.2); Mean Corpuscular Volume 88.1 fl (81-99); Mean Platelet Volume 6.9 fl (7.4-10.4); Monocytes # 0.3 K/mm3 (0.1-1.0); Monocytes % 4.6 % (1.7-9.3); Neutrophils # 3.6 K/mm3 (1.8-7.8); Neutrophils % 53.7 % (37.0-80.0); Platelet Count 334 K/mm3 (142-424); Red Blood Count 4.98 M/mm3 (4.20-5.40); Red Cell Distribution Width 13.9 % (11.5-17.5); White Blood Count 6.7 K/mm3 (4.8-10.8)
[2024-02-11 09:38] LABS: Blood Urea Nitrogen 14 mg/dl (7-17); Creatinine Clearance Estimated 76 mL/min (50-200); Estimated Glomerular Filt Rate 72 ml/min (>60); GFR (African American) 88 ML/MIN (>60)
[2024-02-11 09:39] LABS: Anion Gap 9.4 mEq/L (5-15); Calcium 9.4 mg/dl (8.4-10.2); Carbon Dioxide 26 mmol/L (22.0-30.0); Glucose 103 mg/dl (74-100)
[2024-02-11] MEDS: LIDOCAINE 1% 10ML MDV 20 ML IJ (10:56)
[2024-02-11] MEDS: VERAPAMIL 2.5MG/ML 2ML VIAL 2.5 MG IV (10:57)
[2024-02-11] MEDS: HEPARIN 1,000 UNITS/500ML NS (CATH LAB) 3000 UNIT IV (10:57)
[2024-02-11] MEDS: NITROGLYCERIN 800MCG/8ML SYR (CATH LAB) 800 MCG IA (10:57)
[2024-02-11] MEDS: 0.9 % SODIUM CHLORIDE 500 ML 25 ML IV (10:58)
[2024-02-11] MEDS: HEPARIN 1,000 UNITS/ML 10ML VIAL (CATH LAB) 10000 UNIT IV (10:58)
[2024-02-11] MEDS: diphenhydrAMINE 50MG/ML VIAL 50 MG IV (10:58)
[2024-02-11] MEDS: MIDAZOLAM HCL 1MG/1ML 5ML VIAL 1 MG IV ×2 (11:16→11:17)
[2024-02-11] MEDS: FENTANYL 100MCG/2ML VIAL 50 MCG IV (11:16)
[2024-02-11] MEDS: PRASUGREL 10MG TAB 60 MG PO (11:43)
--- NOTE | 2024-02-11 11:55 | SUR.PHASEII ---
No doris or arb per dr [place]
[2024-02-11] MEDS: IOPAMIDOL-370 (76%);100ML BOTTLE 105 ML IV (13:36)
[2024-02-11 13:39] LABS: CATHL Activated Clotting Time 333 SEC (74-125)
== END 2024-02-11 14:04 | disposition home or self-care (01) ==
PROVIDERS: PCP Nurse Practitioner Family; Visit Provider Internal Medicine
DX: R93.1 Abnormal findings on diagnostic imaging of heart and coronary circulation (principal); Z79.899 Other long term (current) drug therapy; I25.118 Atherosclerotic heart disease of native coronary artery with other forms of angina pectoris; Z86.16 Personal history of COVID-19; Z82.49 Family history of ischemic heart disease and other diseases of the circulatory system; I10 Essential (primary) hypertension; E78.5 Hyperlipidemia, unspecified
CPT/HCPCS: 80048; 85025; 85347; 92928; 93458; 99152; 99153; C1725; C1769; C1874; C9600; J1200; J1644; J2250; J3010; Q9967

== ENCOUNTER 2024-02-12 08:43 | Outpatient (CLI) | payer OTHER, SELFPAY ==
[2024-02-12 09:04] LABS: Basophils # 0.1 K/mm3 (0-0.2); Basophils % 0.8 % (0.1-2.0); Eosinophils # 0.1 K/mm3 (0.0-0.4); Eosinophils % 1.4 % (0.1-12.0); Hematocrit 43.5 % (37.0-47.0); Hemoglobin 14.7 g/dL (12.2-16.2); Lymphocytes % 21.4 % (10-50); Mean Corpuscular HGB Conc 33.7 g/dL (31.8-35.4); Mean Corpuscular Hemoglobin 29.7 pg (27.0-31.2); Mean Corpuscular Volume 88.2 fl (81-99); Mean Platelet Volume 6.8 fl (7.4-10.4); Monocytes # 0.4 K/mm3 (0.1-1.0); Monocytes % 4.2 % (1.7-9.3); Neutrophils # 6.8 K/mm3 (1.8-7.8); Neutrophils % 72.1 % (37.0-80.0); Platelet Count 361 K/mm3 (142-424); Red Blood Count 4.94 M/mm3 (4.20-5.40); White Blood Count 9.5 K/mm3 (4.8-10.8)
[2024-02-12 09:19] LABS: Chloride 105 mmol/L (98-107); Potassium 4.1 mmoL/L (3.5-5.1); Sodium 140 mmol/L (136-145)
[2024-02-12 09:22] LABS: Anion Gap 14.1 mEq/L (5-15); Blood Urea Nitrogen 14 mg/dl (7-17); Calcium 9.6 mg/dl (8.4-10.2); Carbon Dioxide 25 mmol/L (22.0-30.0); Estimated Glomerular Filt Rate 72 ml/min (>60); GFR (African American) 88 ML/MIN (>60); Glucose 108 mg/dl (74-100)
== END 2024-02-12 23:59 | disposition home or self-care (01) ==
LOC: LAB 08:45
PROVIDERS: PCP Nurse Practitioner Family; Visit Provider Internal Medicine
DX: I25.10 Atherosclerotic heart disease of native coronary artery without angina pectoris (principal); I10 Essential (primary) hypertension
CPT/HCPCS: 36415; 80048; 85025

== ENCOUNTER 2024-02-14 13:20 | Outpatient (CLI) | payer OTHER, SELFPAY ==
--- NOTE | 2024-02-14 13:23 | CA_ITS ---
APPROVED REPORT EXAM: Comprehensive 2D, Doppler, and color-flow Echocardiogram Japanese Professor: Ericka Benjamin RVT Ht: 5 ft 1 in Wt: 183lbs BSA: 1.82 BP: 126/76 mmHg Indications: CP,CAD,HTN,HLD M-Mode Dimensions RVDd 2.00 cm (0.9-2.6) LA Diam 4.24 cm (1.9-4.0) LVDd 5.65 cm (3.5-5.7) LVDs 3.91 cm (3.5-5.7) IVSd 0.72 cm (0.6-1.1) PWd 0.72 cm (0.6-1.1) EF (Teich) 57.70% FS 30.80% EDV (Teich) 156.80 mL TAPSE 2.73 (<1.7) ESV (Teich) 66.30 mL LV Diastology E Decel Time 150 (160-240 msec) E/A Ratio 1.0 Aortic Valve JACQUELINE Index 1.99 cm2/m2 AoV Peak Ariel. 178.0 (50-130 cm/s) AO Peak GR. 12.70 mmHg AO Mean GR. 8.10 (<5 mmHg) AO VTI 33.4 (18-25 cm) JACQUELINE (VTI) 3.71 (2.5-4.5 cm2) Mitral Valve MV E Max Ariel. 69.0 (40-130 cm/s) MV A Velocity 71.0 (40-130 cm/s) E/A Ratio 0.97 MV PHT 44.0 ms Pulmonary Valve PV Peak Velocity 80.0 (50-150 cm/s) Tricuspid Valve TR P. Velocity 191.00 cm/s RAP Estimate 10.00 mmHg RVSP 24.50 mmHg Left Ventricle The left ventricle is normal size. The left ventricular systolic function is normal. The left ventricular ejection fraction is within the normal range. There is increased LV wall thickness. Proximal septal thickening is noted. There is no LVOT obstruction at rest. There is normal LV segmental wall motion. The left ventricular diastolic function is normal. LVEF is 55%. Right Ventricle The right ventricle is mildly dilated. The right ventricular systolic function is normal. Atria The left atrium is mildly dilated. The right atrium is mildly dilated. Aortic Valve The aortic valve is mildly thickened. There is no aortic valvular stenosis. No aortic regurgitation is present. Mitral Valve There is systolic anterior motion of the mitral valve leaflets. No evidence of mitral valve stenosis. Trace mitral regurgitation. Tricuspid Valve The tricuspid valve leaflets are thin and pliable. Trace tricuspid regurgitation. There is insufficient TR jet to estimate RVSP. Pulmonic Valve The pulmonary valve is normal in structure. Trace pulmonic regurgitation. Great Vessels The aortic root is normal in size. The ascending aorta is normal in size. IVC is normal in size and collapses >50% with inspiration. Pericardium There is no pericardial effusion. Other Information Study Quality: Technically Difficult Conclusion Technically difficult study due to poor acoustic windows. Normal biventricular systolic function. Mild RV dilation. Mild biatrial dilation. Systolic anterior motion (NAIDA) of the MV leaflets. No LVOT obstruction at rest. No significant valvular stenosis or regurgitation. Electronically signed by : Sruthi Navarro MD 02/20/2024 12:11:54
== END 2024-02-14 23:59 | disposition home or self-care (01) ==
LOC: RT 13:21
PROVIDERS: PCP Nurse Practitioner Family; Visit Provider Physician Assistant
DX: R93.1 Abnormal findings on diagnostic imaging of heart and coronary circulation (principal); R07.9 Chest pain, unspecified; I25.10 Atherosclerotic heart disease of native coronary artery without angina pectoris
CPT/HCPCS: 93306

== ENCOUNTER 2024-11-26 11:02 | Outpatient (CLI) | payer OTHER, SELFPAY ==
--- OUTSIDE RECORDS SUMMARY | 2024-11-26 11:05 | XMS_ITS | Encounter Summary ---
Author Organization [facility] Address [address] [address] Care Team Providers Care Drywall Taper Name Role Phone Erickson Patrick MD Primary Care Provider [phone] Encounter Details Date Type Department Care Team (Late st Contact Info) Description 03/06/2013 Conversion Encounter [facility] HISTORICAL CONV [address] [place] [address] Interface, See Report Social History Tobacco Use Types Packs/Day Years Used Date Smoking Tobacco: Never Assessed Comments Unknown Sex and Gender Information Value Date Recorded Sex Assigned at Not on file Legal Sex Female 12:12 PM EDT Gender Identity Not on file Sexual Orientation Not on file documented as of this encounter Progress Notes * Interface, See Report - 03/06/2013 12:00 AM EST [facility] [address] [place], [place] [id number] Patient: ALEJANDRO DIAZ MR #: [id number] : 1960 Date of Visit: 03/06/2013 Referring Physician: Dictated By: Lona Wong APRN Diagnosis: FIBROID; PMB Allergies: NKDA History of present illness: BUDGET EXAMINER ANNUAL EXAM . HAD SOME SPOTTING 2 WEEKS AGO X1WEEK. NONE SINCE. NO PAIN. 52 yo female here for annual exam with a history of fibroid uterus. She no angeline today that she had an episode of bleeding that last 1 week after not having menstrual cycles for greater than one year. This has since resolved. She noted no pelvic pain or cramping. Her bowels and bladder are working well. Her mammogram was completed this morning. Her colonoscopy was in 2011. Present family and/or social history: Family history: NEGATIVE Social history: Tobacco Y N PPD ETOH Y N # Drinks Marital Status M Occupation Past medical history: Medical: KIDNEY PROBLEM A CHILD, S. ALLERGIES, HYPERTENSION Surgical: BTL Health maintenance: Mammogram: 09/2011 Colonoscopy: 2005 Pap smear: 10/2011 Tumor Marker: CT Scan: BMD: Ultrasound: Review of systems: Constitutional: No change in weight, no excessive fatigue Psychiatric: No history of anxiety, depression, bipolar disorder, or insomnia Eyes: Vision unchanged Ears, Nose, Mouth, Throat: S. ALLERGIES Hearing normal, no swallowing difficulties, no sore throat Endocrine: No history of diabetes, thyroid disease, heat/cold intolerance Lymphatic: No enlarged lymph nodes Respiratory: No shortness of breath, cough, asthma, wheezing Cardiovascular: +HYPERTENSION No angina, orthopnea, edema, murmur, hyperlipidemia Gastrointestinal: No constipation or diarrhea, no reflux, nausea, or vomiting Genitourinary: No dysuria, hematuria, urgency, or frequency Neurologic: No numbness, weakness, syncope, seizures, or headaches Musculoskeletal: No muscle weakness, or joint pain Integumentary: No new skin lesions Gynecologic: + PMB. + FIBROID. No vaginal discharge, pelvic pain, of h/o abnml pap smears LMP: P: 2 Vag Deliveries: 2 C-sec: Misc: Hematologic: No history of anemia, easy bruising, or blood clots Medications: Medication Reconciliation for the patient has been reviewed in the EMR. Physical exam: Constitutional: Weight 165 Hei ght 61 BP 122/84 Pulse Temp Neurological/Psychiatric: HEENT: Neck: Respiratory: Cardiovascular: Breasts: Gastrointestinal: Lymphatic: Extremities: Skin: Gynecologic: External Genitalia: Vagina: Cervix: Uterus: Ovaries: Parametria: Smooth. Rectovaginal: Hemoccult: Procedure note: Per Dr. Stephenson Assessment: Annual Well Woman Exam H/O Fibroid Uterus PMB Plan: Call next week for path results. Discussed that she may spot today and have cramping related to biopsy RTC Based on pathology results Electronically Signed By: Lona Wong APRN cc: documented in this encounter Plan of Treatment Not on file documented as of this encounter Visit Diagnoses Not on filedocumented in this encounter Care Teams Drywall Taper Relationship Specialty Start Date End Date Erickson Patrick MD [address] [place] [facility] [address] [facility] [address] [place] [address] PCP - General Adolescent Medicine 01/14/19 documented as of this encounter
--- OUTSIDE RECORDS SUMMARY | 2024-11-26 11:05 | XMS_ITS | Clinical Summary ---
Author Organization [facility] Address [address] [place] [address] Care Team Providers Care Music Theory Professor Name Role Phone Erickson Patrick MD Primary Care Provider [phone] Allergies Active Allergy Reactions Criticality Noted Date Comments Nickel Rash Low 03/29/2020 Medications bisoprolol-hydr ochlorothiazide (ZIAC) 5-6.25 MG per tablet bisoprolol 5 mg-hydrochlorot hiazide 6.25 mg tablet Take 1 tablet every day by oral route. Active Cetirizine HCl 10 MG capsule cetirizine Activ e [place]-3 Fatty Acids (GNP Fish Oil) 1000 MG capsule Take 1 capsule by mouth Daily. 3 Active D3 Super Strength 50 MCG (2000 UT) capsule Take 1 capsule by mouth Daily. 3 Active Active Problems Problem Noted Date Diagnosed Date Well woman exam with routine gynecological exam 04/05/2022 Overview (04/25/2023): SCREENING TESTS Year 2017 2018 2019 2019 2020 2021 2022 2023 2024 2025 2026 2027 2028 2029 2030 2031 2032 Age 62 PAP 12 HPV high risk 12 TOOTIE [Birads] HUSAM (5 year) Efrem Rocha (lifetime) Colonoscopy DEXA [T-score] Frax [hip/any] 12 0.9/3 Osteopenia of the L1-L4 vertebrae, and right femoral neck. Enter the month test was performed. If month not known, enter X' Black numbers = normal results Red numbers = abnormal results Black X = patient reported normal Red X - patient reported abnormal Referred by: Profession: Other info: Osteopenia of neck of femur FRAX 8.6% / 1.0% Quinn y 202011/10/2020 ELSI (stress urinary incontinence, female) 2018 Subserous leiomyoma of uterus 02/06/2017 Resolved Problems Problem Noted Date Diagnosed Date Resolved Date Well woman exam with routine gynecological exam 02/06/2017 07/22/2020 History of PMB 2013 benign biopsy 02/06/2017 07/22/2020 Family History Medical History Relation Name Comments No Known Problems Brother Diabetes Father Bipinmdal Augustin No Known Problems Maternal Grandfather Colon cancer Maternal Grandmother Thania Ricardo 61 No Known Problems Mother Stroke Paternal Grandfather Custered Augustin No Known Problems Paternal Grandmother Diabetes Sister Arpan Arango Hypertension Sister Arpan [place] Breast cancer Neg Hx Ovarian cancer Neg Hx Relation Name Status Comments Brother Father Weal Augustin Maternal Grandfather Maternal Grandmother Thania Ricardo Mother Paternal Grandfather Custered Augustin Paternal Grandmother Sister Arpan Arango Social History Tobacco Use Types Packs/Day Years Used Date Smoking Tobacco: Never Smokeless Tobacco: Never Tobacco Cessation:Counseling Given: Not Answered Alcohol Use Standard Drinks/Week Comments No 0 (1 standard drink = 0.6 oz pur e alcohol) Education Answer Date Recorded What is the highest level of school you have completed or the highest degree you have received? Some college, no degree 04/05/2022 Comments No Sex and Gender Information Value Date Recorded Sex Assigned at Not on file Legal Sex Female 12:12 PM EDT Gender Identity Not on file Sexual Orientation Not on file Last Filed Vital Signs Vital Sign Reading Time Taken Comments Blood Pressure 130/80 04/09/2023 8:52 AM EST Pulse 70 02/06/2017 1:43 PM EDT Temperature 36.3 C (97.3 F) 02/06/2017 1:43 PM EDT Respiratory Rate 14 02/06/2017 1:43 PM EDT Oxygen Saturation 96% 02/06/2017 1:43 PM EDT Inhaled Oxygen Concentration - - Weight 89.4 kg (197 lb) 04/09/2023 8:52 AM EST Height 152.4 cm (5') 04/09/2023 8:52 AM EST Body Mass Index 38.47 04/09/2023 8:52 AM EST Plan of Treatment Health Maintenance Due Date Last Done Comments GT 2005 COLON CANCER SCREENING 5 YEA [address] SIG[address] COLONOGRAPHY 2005 FECAL OCCULT BLOOD TEST 2005 FIT Testing (1 year) 2005 Pneumococcal Vaccine 50+ (1 of 1 - PCV) 2010 ZOSTER VACCINE (1 of 2) 2010 ANNUAL PHYSICAL 02/06/2017 HEPATITIS C SCREENING 02/06/2017 COVID-19 Vaccine (3 - 2023-2 5 season) 2023 01/31/2021, 01/09/2021 Annual Gynecologic Pelvic an d Breast Exam 04/10/2024 04/09/2023, 04/05/2022, 01/14/2019, Additional history exists INFLUENZA VACCINE 01/27/2025 MAMMOGRAM 06/10/2026 06/10/2024, 04/29, 04/25/2022, Additional history exists COLONOSCOPY 07/15/2027 07/14/2017 COLORECTAL CANCER SCREENING 07/15/2027 TDAP/TD VACCINES (2 - Td or Tdap) 09/20/2030 021 Procedures Procedure Name Priority Date/Time Associated Diagnosis Comments MAMMO SCREENING DIGITAL TOMOSYNTHESIS BILATERAL W CAD Routine 06/10/2024 2:44 PM EST Visit for screening mammogram SCANNED - PAP SMEAR 01/14/2019 from Last 3 Months or Most Recently Relevant to Health Maintenance Results * Mammo Screening Digital Tomosynthesis Bilateral With CAD (06/10/2024 2:44 PM EST) Anatomical Region Laterality Modality Breast N/A Mammography 06/15/2024 1:00 PM EST Impressions 06/15/2024 1:02 PM EST Negative bilateral mammogram. RECOMMENDATION: Continue annual screening mammography. BI-RADS CATEGORY 1, NEGATIVE. CAD was utilized. The standard false-negative rate of mammography is between 10% and 25%. Complex patterns or increased breast density will markedly elevate the false-negative rate of mammography. A letter, in lay terminology, with the results of this exam will be mailed to the patient. 06/15/2024 1:[address] Koby Treviño MD on Narrative 06/15/2024 1:02 PM EST DIGITAL SCREENING MAMMOGRAM WITH TOMOSYNTHESIS HISTORY: Screening Mammography. Low dose full field digital breast tomosynthesis imaging was performed with 2D and 3D acquisitions consisting of bilateral CC and MLO views. Examination is compared to prior examination dating back to 02/06/2017. Examination is read in conjunction with computer aided detection. FINDINGS: There are scattered areas of fibroglandular density. No suspicious masses, microcalcifications or areas of architectural distortion are present. us Erickson Patrick MD IMG MAMMOGRAPHY ORDERABLES F inal Result * SCANNED - PAP SMEAR (01/14/2019) us Branden Palomo MD CHART REVIEW TABS Final Resul t from Last 3 Months or Most Recently Relevant to Health Maintenance Insurance [facility] Member Subscriber Plan / Payer (Ef fective 2020-Present) Name:Emerita Hill Relation to Subscriber:Self Name:Emerita Hill Payer ID:[id number] Group ID:[id number] Type:Not on file Address: [address] Care Teams Music Theory Professor Relationship Specialty Start Date End Date Erickson Patrick MD [address] [facility] [address] [place] [id number] PCP - General Adolescent Medicine 01/14/19
--- NOTE | 2024-11-26 11:08 | XR_ITS ---
FINAL REPORT CLINICAL HISTORY: PAIN IN LT HIP COMPARISON: None FINDINGS: AP and frog leg views of the left hip were obtained with an AP pelvis. There is no acute fracture or dislocation. Joint space is preserved. Soft tissues are unremarkable. IMPRESSION: No acute osseous abnormality of the left hip. Reviewed, Interpreted and Dictated by Lauren Harper MD Transcribed by Yuli Boggs Authenticated and [facility]
== END 2024-11-26 23:59 | disposition home or self-care (01) ==
LOC: RAD 11:03
PROVIDERS: PCP Nurse Practitioner Family; Visit Provider Nurse Practitioner Family
DX: M25.552 Pain in left hip (principal); G89.29 Other chronic pain
CPT/HCPCS: 73502

== ENCOUNTER 2024-12-14 14:30 | Outpatient (RCR) | payer OTHER, SELFPAY ==
--- NOTE | 2024-12-14 15:53 | HMH.PTOPEV ---
PT Outpatient Evaluation Rehab PT Outpatient Evaluation Start: 12/14/24 14:52 Freq: Status: Active Protocol: Document 12/14/24 14:56 MATTDE (Rec: 12/14/24 15:53 STEPHANIE [id number]) E-signed By Annita Wasserman, PT Outpatient Therapy Subjective History Subjective History Pt is a 64 y/o female who reports chronic L posterior hip pain with worsening of symptoms 1 month ago. Pt reports when symptoms worsened pain moved to the center of her back. Pt denies known trauma or injury to worsen symptoms although states she did fall yesterday due to tripping over her sandals resulting in right sided soreness. Pt reports current symptoms of central low back pain described as dull in nature. Pt reports pain is aggravated by prolonged sitting, prolonged standing and laying on the left side. Pt denies anterior groin pain, radiating pain into her legs or b/ b dysfunction. Pt had a L hip radiograph on 11/26/24 with impression of No acute osseous abnormality of the left hip. Pt states she was told she had a slight curvature of her lumbar spine by the orthopedic doctor. Pt states she was told she was referred to PT for a HEP only. Medical History: Coronary artery disease, History of COVID-19, Irritable bowel syndrome (IBS), Hyperlipidemia, Hypertension New diagnosis of No cancer in past 12 months? Chief Complaint Pain Symptom Type Ache,Dull Symptoms Aggravated Sitting,Standing By Current Functional Housework,Standing,Sitting Limitations Symptom Description Intermittent Level of pain today 2 (0-10) Pain scale - at its 0 best (0-10) Pain scale - at its 6 worst (0-10) Lumbopelvic Eval Palapation tenderness bilateral lumbar spinal Yes: L3-L5 tenderness buttock tenderness Yes: L piriformis mm Lumbar/Sacral Tenderness Palpation Findings Lumbar/Sacral 1/4 TTP Palpation Overall Comment Accessory Movement L-spine Vertebrae Central P/A Summit Accessory Movements that Elicit Symptoms L3 bilateral L4 bilateral L5 bilateral Range of Motion Lumbar Spine Active 70 Flexion Range of Motion (degrees) Lumbar Spine Active 10 Extension Range of Motion (degrees) Left Lumbar Spine 5 Lateral Flexion Active Range of Motion (degrees) Right Lumbar Spine 5 Lateral Flexion Active Range of Motion (degrees) Altered Sensation Bilateral Comment equal and intact to light touch sensation Special Tests Hip Scouring ( Negative Left,Negative Right Quadrant) Test Hip Filiberto (YENNY) Negative Left,Negative Right Test Sciatic Nerve Negative Left,Negative Right Tension Test Unilateral Straight Negative Left,Negative Right Leg Raise (Lasegue) Test Hip/Knee Eval Palpation Tenderness left Hip Palpation Tenderness Findings Hip Palpation L piriformis mm Overall Comment MMT Hip Flexion Strength 4 Good Grade Hip Abduction 4- Good- Strength Grade Hip Adduction 4 Good Strength Grade Hip Extension 4- Good- Strength Grade Hip External 4- Good- Rotation Strength Grade Hip Internal 4- Good- Rotation Strength Grade Knee Extension 5 Normal Strength Grade Knee Flexion 5 Normal Strength Grade ROM Hip Flexion w/Knee 110 Flexed Active Range of Motion (degrees) Hip External 45 p! Rotation Active Range of Motion ( degrees) Hip Internal 40 Rotation Active Range of Motion ( degrees) Lower Extremity Functional Index Activities Today, do you or would you have any difficulty at all with: a.Any of your usual A little bit of difficulty work, housework or school activities b. Your usual A little bit of difficulty hobbies, recreational or sporting activities c. Getting into or A little bit of difficulty out of the bath d. Walking between No difficulty rooms e. Putting on your A little bit of difficulty shoes or socks f. Squatting A little bit of difficulty g. Lifting an object A little bit of difficulty , like a bag of groceries from the floor h. Performing light A little bit of difficulty activities around your home i. Performing heavy Moderate difficulty activities around your home j. Getting into or Moderate difficulty out of a car k. Walking 2 blocks No difficulty l. Walking a mile No difficulty m. Going up or down A little bit of difficulty 10 stairs (about 1 flight of stairs) n. Standing for 1 Moderate difficulty hour o. Sitting for 1 Moderate difficulty hour p. Running on even A little bit of difficulty ground q. Running on uneven A little bit of difficulty ground r. Making sharp A little bit of difficulty turns while running fast s. Hopping A little bit of difficulty t. Rolling over in Moderate difficulty bed LEFI Score Lower Extremity 58 Functional Index Score Outpatient Therapy Assessment Impairments Problems/ Palpation Tenderness,Impaired Range of Motion,Impaired Impairmments Strength,Impaired Standing,Impaired Sitting,Impaired Household Care,Subjective C/O Pain,Impaired Self Care/ Self Management Prognosis Rehab Potential Innapropriate for Skilled Therapy Comment Pt requested home exercise program only therefore was provided with written/illustrated HEP instruction that was reviewed in the clinic this date and encouraged to call PT office with any questions/concerns. Clinical Impression Consistent with Yes Diagnosis Additional details: also low back pain M54.5 Outpatient Therapy Plan of Care Addendums This patient is a No candidate for social or vocational rehab ? Patient/Guardian Yes verbally acknowledges understanding of treatment program and consents to further treatment? Patient/Guardian Yes verbally acknowledges understanding of diagnosis, prognosis and goals for treatment? Eval Complexity PT Charges 68677 - Moderate Complexity Shoulder/Elbow Eval Shoulder Objective Measurements Elbow Objective Measurements PHYSICIAN CERTIFICATION: I certify the specified therapy services for Emerita Hill are required, authorized, and reviewed every 30 days.
== END 2024-12-14 23:59 | disposition home or self-care (01) ==
LOC: PT 14:30
PROVIDERS: PCP Nurse Practitioner Family; Visit Provider Physician Assistant Surgical
DX: M25.552 Pain in left hip (principal)
CPT/HCPCS: 97162